=== PATIENT | male | born 1945 | race Two or more races ===

== ENCOUNTER 2020-02-21 13:44 | Outpatient (AMBR) | payer MEDICARE, MEDICAID, SELFPAY ==
--- NOTE | 2020-02-21 14:02 | PT.OIERPT ---
PT OP Initial Eval Patient Information Visit Reasons: low back pain Medical Diagnosis: M51.26 M43.16 G89.29 Start of Care: 02/21/20 Date of Onset: 8 weeks ago Initial Assessment Subjective Pt is 74 yr old japanese speaking male who c/o long Hx of LBP that started with falling out of a tree 6 yrs ago that has worsened over the past 2 months. Increased pain with walking, bending, lifting and twisting. Pain level is low now in sitting and he sits at home most of the day to watch television. PLOF: prior to falling out of a tree he had full function with ADL's and work duties and was able to return to work. PMH: HTN, asthma, OA B knees, L knee sx 02/03/12 Imaging: with Objective Trunk AROM B SB 50% with pain Extension: 10% with pain along beltline Flexion: 14 from floor B rotation: 40% with pain B SLR ROM: 30 deg with posterior neural tension LE strength: B hamstrings: 3+/5 Quads 3+/5 Hip abd/add 5-/5 TTP: B PSIS, L4-5 and L5-S1 paraspinals on R SLR: positive B Assessment Pt presents with trunk extension sensitivity and very limited ROM with pain consistent with X-rays that reveal spondylolisthesis of L5 on S1. Pt has poor standing tolerance and laying supine is also painful. The pt is not likely to benefit from skilled therapy at this time and has poor rehab potential due to severity of other lumbar issues such as DDD, spurring and significant spinal stenosis. PT recommends pain management referral. He was taught HEP and given materials. Short Term and Administrative Processor Goals Eval and d/C Treatment Plan Eval and D/C Follow up with provider Certification Dates: 02/21/20 to 03/22/20 Office Procedures PT Procedures PT Date of Service: 02/21/20 OP PT Eval Mod Complex 30 minutes: Yes
== END 2020-03-12 23:59 | disposition home or self-care (01) ==
PROVIDERS: PCP Nurse Practitioner Family; Referring Provider Nurse Practitioner Family; Visit Provider Nurse Practitioner Family
DX: M51.26 Other intervertebral disc displacement, lumbar region (principal); M43.16 Spondylolisthesis, lumbar region; G89.29 Other chronic pain; I10 Essential (primary) hypertension
CPT/HCPCS: 97162

== ENCOUNTER → 2024-10-27 | Outpatient (CLI) | payer OTHER, SELFPAY | END | disposition home or self-care (01) | PROVIDERS: PCP Family Medicine; Referring Provider Family Medicine; Visit Provider Student in an Organized Health Care Education/Training Program | DX: I10 Essential (primary) hypertension (principal); L97.822 Non-pressure chronic ulcer of other part of left lower leg with fat layer exposed; J45.909 Unspecified asthma, uncomplicated; I73.9 Peripheral vascular disease, unspecified; I82.409 Acute embolism and thrombosis of unspecified deep veins of unspecified lower extremity; M19.90 Unspecified osteoarthritis, unspecified site; E78.5 Hyperlipidemia, unspecified | CPT/HCPCS: 11042; 99213; A9270; G0463 ==

== ENCOUNTER → 2024-11-03 | Outpatient (CLI) | payer OTHER, SELFPAY | END | disposition home or self-care (01) | LOC: SWHD 13:45 | PROVIDERS: PCP Family Medicine; Referring Provider Family Medicine; Visit Provider Student in an Organized Health Care Education/Training Program | DX: I87.332 Chronic venous hypertension (idiopathic) with ulcer and inflammation of left lower extremity (principal); L97.822 Non-pressure chronic ulcer of other part of left lower leg with fat layer exposed; I10 Essential (primary) hypertension; J45.909 Unspecified asthma, uncomplicated; I73.9 Peripheral vascular disease, unspecified; I82.409 Acute embolism and thrombosis of unspecified deep veins of unspecified lower extremity; M19.90 Unspecified osteoarthritis, unspecified site; E78.5 Hyperlipidemia, unspecified | CPT/HCPCS: 17250; A9270 ==

== ENCOUNTER → 2024-11-11 | Outpatient (CLI) | payer OTHER, SELFPAY | END | disposition home or self-care (01) | LOC: SWHD 12:58 | PROVIDERS: PCP Family Medicine; Referring Provider Family Medicine; Visit Provider Student in an Organized Health Care Education/Training Program | DX: I87.332 Chronic venous hypertension (idiopathic) with ulcer and inflammation of left lower extremity (principal); L97.822 Non-pressure chronic ulcer of other part of left lower leg with fat layer exposed; I10 Essential (primary) hypertension; J45.909 Unspecified asthma, uncomplicated; I73.9 Peripheral vascular disease, unspecified; I82.409 Acute embolism and thrombosis of unspecified deep veins of unspecified lower extremity; M19.90 Unspecified osteoarthritis, unspecified site; E78.5 Hyperlipidemia, unspecified | CPT/HCPCS: 97597; A9270 ==

== ENCOUNTER 2024-11-15 15:46 | Emergency (ER) | payer OTHER, SELFPAY ==
[2024-11-15 15:47] VITALS: BMI 32.9
[2024-11-15 16:10] VITALS: BP 156/94; PULSE 66; RESP 20; TEMP 36.8; O2SAT 96
--- NOTE | 2024-11-15 16:42 | EKG_ITS ---
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: : 1945 Requested By: Jacoby Terry Order Number: [id number] Reading MD: Jacoby Terry Measurements Intervals [place] Rate: 65 P: AK: QRS: 64 QRSD: 90 T: 234 QT: 415 QTc: 433 Interpretive Statements ATRIAL FIBRILLATION POSSIBLE RIGHT VENTRICULAR CONDUCTION DELAY [RSR (QR) IN V1/V2] SEPTAL MYOCARDIAL INFARCTION , PROBABLY OLD [40+ ms Q WAVE IN V1/V2] MODERATE T-WAVE ABNORMALITY, CONSIDER LATERAL ISCHEMIA [-0.1+ mV T-WAVE IN I/aVL/V5/V6] MODERATE T-WAVE ABNORMALITY, CONSIDER INFERIOR ISCHEMIA [-0.1+ mV T-WAVE IN II/aVF] Compared to ECG 12/18/2022 08:38:01 Myocardial infarct finding now present Incomplete right bundle-branch block no longer present T-wave abnormality still present Possible ischemia still present /store/S0/[id number]/ecg/[id number].pdf
--- NOTE | 2024-11-15 16:42 | XR_ITS ---
Examination: CTA chest with intravenous contrast 2-D reconstructions 3-D reconstructions, vascular Date and time of exam: November 15, 2024 at 8:40 PM INDICATIONS: Difficulty breathing chest pain beginning 6 months ago CTDI: vol (mGy) 2184 DLP: (mGycm) 547 Technique: Multiple axial sections of the thorax have been obtained. 3 mm slice thickness, from below the hemidiaphragms to above the apices of the lungs. Mediastinal and lung density settings have been obtained. 2-D sagittal and coronal reconstructions. 3-D angiographic renderings, 3-D volume renderings, 3D post processing, vascular maximum intensity projections obtained. Contrast administered is 100 cc Isovue-370. Low dose protocols were performed. One or more of the following dose reduction techniques were used; automated exposure control, adjustment of the mA and/or KV according to patient size, use of iterative reconstruction technique. Findings: No thoracic aortic aneurysmal dilatation Pulmonary artery segments are not enlarged No pulmonary artery filling defects Moderate enlargement left atrium mild to moderate enlargement left ventricle Bronchiectasis in both lower lung zones with mild pneumonia left base Small gallstones IMPRESSION: Negative for pulmonary artery emboli Bronchiectasis in both lower lung zones Mild pneumonia left base Cholelithiasis
--- NOTE | 2024-11-15 16:44 | EDRME_ITS ---
Rapid Medical Screening Exam RME Arrival date/time: 11/15/24 15:46 79-year-old male with a history of asthma and DVTs reports with complaints of 6- week history of shortness of breath that worsened over the last few days Chief Complaint: Shortness of Breath/Dyspnea Time Seen by Provider: 11/15/24 16:28 Vital signs: Vital Signs Temperature 98.2 F 11/15/24 16:10 Pulse Rate 66 11/15/24 16:10 Respiratory Rate 20 11/15/24 16:10 Blood Pressure 156/94 H 11/15/24 16:10 Pulse Oximetry (%) 96 11/15/24 16:10 Oxygen Delivery Method Room Air 11/15/24 16:10
[2024-11-15 17:41] LABS: Basophils # (Auto) 0.1 Thou/mm3 (0.0-0.2); Basophils % (Auto) 1 % (0-2.5); Eosinophils # (Auto) 0.1 Thou/mm3 (0.0-0.5); Eosinophils % (Auto) 1 % (0-10); Hematocrit 41.8 % (41.0-53.0); Hemoglobin 13.6 g/dL (13.5-16.0); Immature Granulocytes % (Auto) 1 % (0-0); Immature Granulocytes Auto 0.06 Thou/mm3 (0.00-0.00); Lymphocytes # (Auto) 2.2 Thou/mm3 (1.0-4.8); Lymphocytes % (Auto) 23 % (10-50); Mean Corpuscular HGB Conc 32.5 g/dl (31.0-37.0); Mean Corpuscular Hemoglobin 29.6 pg (25.0-35.0); Mean Corpuscular Volume 91 fL (80-100); Monocytes # (Auto) 0.8 Thou/mm3 (0.0-0.8); Monocytes % (Auto) 9 % (0-12); Neutrophils # (Auto) 6.3 Thou/mm3 (1.8-7.7); Neutrophils % (Auto) 66 % (37-80); Nucleated Red Blood Cell % 0 /100 WBC (0); Platelet Count 312 Thou/mm3 (140-440); RDW Standard Deviation 51.2 fL (35.1-43.9); White Blood Count 9.6 Thou/mm3 (3.8-10.6)
[2024-11-15 17:54] LABS: Respiratory Syncytial Virus Ag Negative (Negative)
[2024-11-15 17:57] LABS: Alanine Aminotransferase 20 U/L (10-49); Albumin, Serum 4.2 gm/dL (3.4-4.8); Albumin/Globulin Ratio 1.4 (1.2-2.2); Alkaline Phosphatase 90 U/L (46-116); Anion Gap 6 (7-16); Aspartate Amino Transferase 24 U/L (0-34); BUN/Creatinine Ratio 14 Ratio (12-20); Bilirubin,Total 0.8 mg/dL (0.3-1.2); Blood Urea Nitrogen 15 mg/dL (9-23); Carbon Dioxide 32.6 mMol/L (20.0-31.0); Chloride 101 mMol/L (98-107); Creatinine (Component) 1.1 mg/dL (0.6-1.3); Estimated Creatinine Clearance 56.1 mL/min (>60); Globulin 3.1 gm/dL (2.3-3.5); Glucose 98 mg/dL (74-106); Osmolality,Calculated 280 (275-295); Potassium 4.2 mMol/L (3.4-5.1); Sodium 140 mMol/L (136-145); Total Protein 7.3 gm/dL (5.7-8.2); Troponin I < 0.020 ng/mL (0.0-0.045); eGFR > 60 See Note
[2024-11-15 18:08] LABS: B-Type Natriuretic Peptide 598 pg/mL (0-100)
--- NOTE | 2024-11-15 20:35 | PD.EDSOB ---
ED SOB =RME/HPI General Chief Complaint: Shortness of Breath/Dyspnea Stated Complaint: SOB AND DIFF. BREATHING Time Seen by Provider: 11/15/24 16:28 Arrival date/time: 11/15/24 15:46 Limitations: no limitations RME / HPI RME / HPI Narrative: 11/15/24 15:46 79-year-old male with a history of asthma and DVTs reports with complaints of 6-week history of shortness of breath that worsened over the last few days Patient is a 79-year-old Yi-speaking male with past medical history of asthma, hypertension, hyperlipidemia, DVTs, peripheral artery disease, and chronic venous stasis ulcers presents to the ED for a chief complaint of shortness of breath. Patient reports about a week of symptoms including congestion, cough, and fatigue. He was diagnosed about 1 week ago by PCP with flu, and was prescribed at that time prednisone 10 mg qday for 7 days which he completed and montelukast 10 mg qday. He was also prescribed Tamiflu. His symptoms were not improving therefore he came to the ED. Patient denies any known allergen exposures at home including animals, pets, or significant dust or dirt. He denies any history of COPD or smoking. Context: recent illness Severity: moderate Consistency/Duration: constant Known history of: asthma Related Data Home Medications ?Medication ?Instructions ?Recorded ?Confirmed atorvastatin 10 mg tablet 10 mg PO QDAY 04/24/20 11/03/20 furosemide 40 mg tablet (Lasix) 80 mg PO BID 04/24/20 11/03/20 lisinopril 20 mg tablet 20 mg PO QDAY 11/03/20 11/03/20 rivaroxaban 20 mg tablet (Xarelto) 20 mg PO QDAY 11/03/20 11/03/20 Previous Rx's ?Medication ?Instructions ?Recorded meclizine 12.5 mg tablet 12.5 mg PO TID PRN vertigo #30 tabs 11/03/20 ondansetron HCl 4 mg tablet 4 mg PO QID PRN nausea and 11/03/20 (Zofran) vomiting #14 tabs hydrocodone 5 mg-acetaminophen 325 1 tab PO Q6H PRN pain #14 tabs 02/23/21 mg tablet albuterol sulfate 2.5 mg/3 mL 2.5 mg (3 mL) inhalation Q4H PRN 12/18/22 (0.083 %) solution for nebulization shortness of breath or wheezing #90 mL prednisone 50 mg tablet 50 mg PO QDAY #5 tabs 12/18/22 albuterol sulfate 90 mcg/actuation 1 inh inhalation QID PRN shortness 04/05/23 aerosol inhaler of breath or wheezing #8.5 grams azithromycin 250 mg tablet See Rx Instructions PO .COMPLEX #6 04/05/23 (Zithromax Z-Gee) tabs prednisone 50 mg tablet 50 mg PO QDAY #5 tabs 04/05/23 albuterol sulfate 90 mcg/actuation 2 puff inhalation Q6H PRN 09/06/23 aerosol inhaler (Ventolin HFA) bronchospasm #6.7 grams nirmatrelvir 150 mg-ritonavir 100 See Rx Instructions PO .COMPLEX 09/06/23 mg tablets in a dose pack #20 tabs (Paxlovid) promethazine-DM 6.25 mg-15 mg/5 mL 5 ml PO Q6H #240 mL 09/06/23 oral syrup albuterol sulfate 90 mcg/actuation 2 inh inhalation Q4H PRN shortness 11/16/24 breath activated powder inhaler of breath or wheezing #1 ea azithromycin 250 mg tablet See Rx Instructions PO .COMPLEX #6 11/16/24 tabs Allergies Allergy/AdvReac Type Severity Reaction Status Date / Time No Known Allergies Allergy Verified 11/15/24 15:52 Review of Systems Review of Systems Systems Reviewed: All systems reviewed, normal except as documented Past Medical History Past Medical History Comments PMH COMMENT: Past Medical History: Asthma, hypertension, hyperlipidemia, DVTs, peripheral artery disease, and chronic venous stasis ulcers Family History: None Surgical History: Joint replacement Social History: Denies history of smoking, denies current alcohol use, denies recreational drug use Current Medications: Patient does not recall all medications but reports that prednisone, montelukast, and oseltamivir were prescribed by PCP 1 week ago Allergies: No known drug allergies ED Exam Narrative Physical exam: Physical Exam General: Awake and in no acute distress. Conversational and non-toxic appearing. HEENT: Normocephalic, atraumatic, mucous membranes moist. Heart: Regular rate and rhythm, no murmurs. Lungs: Upper respiratory transmitted congestion. Clear to auscultation with no wheezing or crackles. Abdomen: Soft, nondistended, nontender, positive bowel sounds. ?No guarding or rebound tenderness. Neurologic: Alert and oriented x3, no gross neurological deficit, and patient able to move all 4 extremities. Extremities: No edema. Skin: No rash or ecchymoses. General Limitations: Present no limitations General appearance: Present alert and in no apparent distress Head Head exam: Present atraumatic Eye Eye exam: Present normal appearance, PERRL and EOMI ENT ENT exam: Present normal exam, normal oropharynx and mucous membranes moist Neck Neck exam: Present normal inspection, full ROM and trachea midline Chest Chest inspection: Present normal inspection and symmetric chest wall rise Respiratory Respiratory exam: Present normal lung sounds bilaterally Cardiovascular Cardiovascular exam: Present regular rate, normal rhythm and normal heart sounds Abdominal Exam Abdominal exam: Present soft and normal bowel sounds Extremities Exam Extremities exam: Present normal inspection and full ROM Back Exam Back exam: Present normal inspection and full ROM Neurological Exam Neurological exam: Present alert, oriented X3 and CN II-XII intact Psychiatric Psychiatric exam: Present normal affect and normal mood Skin Skin exam: Present warm, dry, intact and normal color Course Course Course Narrative: 2038: Patient is in CT. 0144: CTA results finally back showing bronchitis with bronchiolitis in the right lower lobe. Negative for PE. Patient is stable for discharge, will prescribe 5-day course of azithromycin and albuterol refill. Quality Measures none Orders Category Date Time Status Bedside COVID-19 Antigen Test NOW Care 11/15/24 16:[address] Screening NOW Care 11/15/24 16:42 Completed EKG (ED ONLY) *Do not use* NOW Care 11/15/24 16:[address] angio chest Stat Exams 11/15/24 16:42 Taken EKG (ED Only) Stat Exams 11/15/24 16:42 Draft BNP [B-Type Natriuretic Peptide] Stat Lab 11/15/24 17:19 Completed CBC Stat Lab 11/15/24 17:19 Completed CMP [Comprehensive Metabolic Panel] Stat Lab 11/15/24 17:19 Completed RSV [Respiratory Syncytial Virus Ag] Stat Lab 11/15/24 17:05 Completed Troponin I Stat Lab 11/15/24 17:19 Completed MethylPREDNISolone.* [SoluMEDROL Inj] Med 11/15/24 20:42 Discontinued 125 mg IVP X1 ONE Vital Signs Vital signs: Vital Signs Temperature 98.2 F 11/15/24 16:10 Pulse Rate 66 11/15/24 16:10 Respiratory Rate 20 11/15/24 16:10 Blood Pressure 156/94 H 11/15/24 16:10 Pulse Oximetry (%) 96 11/15/24 16:10 Oxygen Delivery Method Room Air 11/15/24 16:10 Pulse ox is 96% on room air, which is normal according to my interpretation. Shortness of Breath / Dyspnea Patient data External records reviewed:: [facility] previous records (Per chart review, patient was seen here on 11/08/23 for DVT.) Clinical information provided by:: patient Social determinants that could affect healthcare access:: none Patient has the following chronic illnesses:: asthma How is presenting disease/condition affected by chronic disease/condition?: uneffected by Evaluation data The following diagnostics were reviewed and interpreted by me:: lab results, radiology exam(s) and EKG tracing(s) Lab and/or radiology exams considered but not ordered:: None Interpretation Summary: EKG interpretation: afib, 1638, 65, nonspec st in v5 and v6 with t wave inv, no elev Medications / Prescriptions Medications or Prescriptions considered but not ordered:: IV antibiotic Medication administrations:: Medication Administration History Discontinued Medications Methylprednisolone Sodium Succinate (Methylprednisolone Sod Succ 62.5 Mg/Ml 2ml Vial) 125 mg IVP X1 ONE Stop: 11/15/24 20:43 Last Admin: 11/15/24 20:49 Dose: 125 mg Documented By: EE Steroid Consultations Consultation(s) initiated? (list below): No Diagnosis Shortness of Breath Differential Diagnosis: asthma with exacerbation and other (bronchitis and influenza) Most likely diagnosis given after review of the tests above:: Bronchitis, influenza, asthma exacerbation Admission Indicated Admission indicated?: not indicated Admission Request Was there a request for admission?: No Disposition Plan Disposition Plan: Discharge Discharge Attestation Discharge Attestation: The patient and all family members were given an opportunity to ask questions and understood the discharge instructions. Discharge instructions specifically effects, indications for sooner follow up or return to the emergency department, and the expected course of current diagnosis. Patient condition: Stable Discharge Plan Plan Patient Disposition: HOME (Self Care) Patient condition on transfer: Stable Prescriptions/Referrals Prescriptions/Med Rec: New azithromycin 250 mg tablet See Rx Instructions .ROUTE .COMPLEX Qty: 6 0RF Rx Instructions: For 250 mg dose pack: take 500 mg today (day 1), then 250 mg for 4 days (days 2-5) albuterol sulfate 90 mcg/actuation aerosol powdr breath activated 2 inh inhalation Q4H PRN (Reason: shortness of breath or wheezing) Qty: 1 0RF No Action furosemide [Lasix] 40 mg Tablet 80 mg PO BID atorvastatin 10 mg Tablet 10 mg PO QDAY Xarelto 20 mg Tablet 20 mg PO QDAY lisinopril 20 mg Tablet 20 mg PO QDAY ondansetron HCl [Zofran] 4 mg tablet 4 mg PO QID PRN (Reason: nausea and vomiting) Qty: 14 0RF meclizine 12.5 mg tablet 12.5 mg PO TID PRN (Reason: vertigo) Qty: 30 0RF hydrocodone-acetaminophen 5-325 mg tablet 1 tab PO Q6H MDD 4 PRN (Reason: pain) Qty: 14 0RF azithromycin [Zithromax Z-Gee] 250 mg tablet See Rx Instructions .ROUTE .COMPLEX Qty: 6 0RF Rx Instructions: For 250 mg dose pack: take 500 mg today (day 1), then 250 mg for 4 days (days 2-5) prednisone 50 mg tablet 50 mg PO QDAY Qty: 5 0RF albuterol sulfate 90 mcg/actuation HFA aerosol inhaler 1 inh inhalation QID PRN (Reason: shortness of breath or wheezing) Qty: 8.5 0RF prednisone 50 mg tablet 50 mg PO QDAY Qty: 5 0RF Rx Instructions: Start taking the medication tomorrow albuterol sulfate 2.5 mg /3 mL (0.083 %) solution for nebulization 2.5 mg inhalation Q4H PRN (Reason: shortness of breath or wheezing) Qty: 90 0RF Paxlovid 150-100 mg tablets,dose pack See Rx Instructions .ROUTE .COMPLEX Qty: 20 0RF Rx Instructions: take ONE 150 mg tablet of nirmatrelvir with ONE 100 mg tablet of ritonavir twice daily for 5 days promethazine-DM 6.25-15 mg/5 mL syrup 5 ml PO Q6H Qty: 240 0RF albuterol sulfate [Ventolin HFA] 90 mcg/actuation HFA aerosol inhaler 2 puff inhalation Q6H PRN (Reason: bronchospasm) Qty: 6.7 0RF Referrals: Declan Carmona MD [Primary Care Provider] - In 1 week Problem List Clinical Impression: Asthma with exacerbation, Bronchitis Patient/Caregiver Discharge Instructions Education Materials: Acute Bronchitis, Asthma in Older Adults, ED Inhaler Use, Asthma Additional Instructions: Today you have been diagnosed with influenza and bronchitis Please take the following antibiotic, azithromycin, for the next 5 days: Take 2 pills on the first day. Take 1 pill on day 2 to 5. You have been prescribed an albuterol inhaler refill, please ask pharmacy for help with how to use it Hoy le merchant diagnosticado gripe y bronquitis. Marinette el siguiente antibi?elizabeth, azitromicina, malik los pr?ximos 5 d?as: Marinette 2 pastillas el primer d?a. Marinette 1 pastilla entre el d?a 2 y el 5. Le merchant recetado un inhalador de albuterol de repuesto. Solicite ayuda en la farmacia sobre c?mo usarlo. Print Language: Yi Stand Alone Forms: Dilma Award Info., Patient Portal Info Letter
[2024-11-15] MEDS: MethylPREDNISolone SOD SUCC 62.5 MG/ML 2ML VIAL 125 MG IVP (20:49)
--- NOTE | 2024-11-16 01:44 | PRELIM_ITS ---
CT angiogram of the chest with intravenous contrast (axial sections with sagittal and coronal reformats, 3D/MIP reconstructed images) November 15, 2024 at 2037 hours Clinical History: Dyspnea, history of DVT. Reference is made to the prior report dated February 23, 2021. Findings: There is no filling defect within the pulmonary artery divisions to suggest pulmonary thromboembolism. The mediastinum demonstrates no evidence of mass or lymphadenopathy. The thoracic aorta demonstrates atheromatous calcification without evidence of aneurysm. There is mild cardiomegaly. There is no p ericardial effusion. There are streaky atelectasis in the lingula and left lower lobe. Right basilar atelectasis is seen. Mild peribronchial wall thickening in the bilateral lower lobes with linear branching and micronodular opacities in the right lower lobe. No evidence of pleural effusion or pneumothorax. Mild degenerative changes are identified in the spine. Dependent hyperdensity is identified within the gallbladder, which may represent sludge versus calculus. There is a 2.2 cm cyst in the left kidney. The other visualized upper abdominal viscera are unremarkable. Impression: No evidence of pulmonary thromboembolism. Bronchitis with bronchiolitis in the right lower lobe Other findings as described above. Report Electronically Signed By: Navarro Roman 11/16/2024 1:44:23 AM [EST]
== END 2024-11-16 02:34 | disposition home or self-care (01) ==
PROVIDERS: Physician Assistant; Emergency Provider Emergency Medicine; PCP Family Medicine
DX: J45.901 Unspecified asthma with (acute) exacerbation (principal); J20.9 Acute bronchitis, unspecified; I10 Essential (primary) hypertension; E78.5 Hyperlipidemia, unspecified; Z86.718 Personal history of other venous thrombosis and embolism
CPT/HCPCS: 36415; 71275; 80053; 83880; 84484; 85025; 87400; 87502; 87634; 87811; 93005; 96374; 99285; A4649; J2919; Q9967

== ENCOUNTER → 2024-11-17 | Outpatient (CLI) | payer OTHER, MEDICAID, SELFPAY | END | disposition home or self-care (01) | PROVIDERS: PCP Family Medicine; Referring Provider Family Medicine; Visit Provider Surgery | DX: I87.332 Chronic venous hypertension (idiopathic) with ulcer and inflammation of left lower extremity (principal); L97.822 Non-pressure chronic ulcer of other part of left lower leg with fat layer exposed; I10 Essential (primary) hypertension; J45.909 Unspecified asthma, uncomplicated; I73.9 Peripheral vascular disease, unspecified; I82.409 Acute embolism and thrombosis of unspecified deep veins of unspecified lower extremity; M19.90 Unspecified osteoarthritis, unspecified site; E78.5 Hyperlipidemia, unspecified | CPT/HCPCS: 29580; A9270 ==

== ENCOUNTER → 2024-11-24 | Outpatient (CLI) | payer OTHER, MEDICAID, SELFPAY | END | disposition home or self-care (01) | PROVIDERS: PCP Family Medicine; Referring Provider Family Medicine; Visit Provider Student in an Organized Health Care Education/Training Program | DX: I87.332 Chronic venous hypertension (idiopathic) with ulcer and inflammation of left lower extremity (principal); L97.822 Non-pressure chronic ulcer of other part of left lower leg with fat layer exposed; I10 Essential (primary) hypertension; J45.909 Unspecified asthma, uncomplicated; I73.9 Peripheral vascular disease, unspecified; I82.409 Acute embolism and thrombosis of unspecified deep veins of unspecified lower extremity; M19.90 Unspecified osteoarthritis, unspecified site; E78.5 Hyperlipidemia, unspecified | CPT/HCPCS: 99212; G0463 ==

== ENCOUNTER → 2024-12-08 | Outpatient (CLI) | payer OTHER, MEDICAID, SELFPAY | END | disposition home or self-care (01) | PROVIDERS: PCP Family Medicine; Referring Provider Family Medicine; Visit Provider Student in an Organized Health Care Education/Training Program | DX: I87.332 Chronic venous hypertension (idiopathic) with ulcer and inflammation of left lower extremity (principal); L97.822 Non-pressure chronic ulcer of other part of left lower leg with fat layer exposed; I10 Essential (primary) hypertension; J45.909 Unspecified asthma, uncomplicated; I73.9 Peripheral vascular disease, unspecified; I82.409 Acute embolism and thrombosis of unspecified deep veins of unspecified lower extremity; M19.90 Unspecified osteoarthritis, unspecified site; E78.5 Hyperlipidemia, unspecified | CPT/HCPCS: 99213; G0463 ==

== ENCOUNTER 2025-01-20 08:49 | Emergency (ER) | payer OTHER, SELFPAY ==
[2025-01-20 09:24] VITALS: BP 135/90; PULSE 63; RESP 20; TEMP 36.6; O2SAT 95; BMI 34.7
--- NOTE | 2025-01-20 09:37 | EKG_ITS ---
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1945 Requested By: Nakita Millan ([facility]) Scout Order Number: [id number] Reading MD: Nakita Millan ([facility]) Scout Measurements Intervals [place] Rate: 44 P: ND: QRS: 1 QRSD: 96 T: 187 QT: 494 QTc: 423 Interpretive Statements ATRIAL FIBRILLATION WITH SLOW VENTRICULAR RESPONSE INCOMPLETE RIGHT BUNDLE BRANCH BLOCK [90+ ms QRS DURATION, TERMINAL R IN V1/V2, 40+ ms S IN I/aVL/V4/V5/V6] PROBABLE INFERIOR MYOCARDIAL INFARCTION , OF INDETERMINATE AGE [35 ms Q WAVE IN II/aVF] MODERATE T-WAVE ABNORMALITY, CONSIDER ANTEROLATERAL ISCHEMIA [-0.1+ mV T-WAVE IN V3-V6] Compared to ECG 11/15/2024 16:48:38 Incomplete right bundle-branch block now present Myocardial infarct finding still present T-wave abnormality still present Possible ischemia still present /store/S0/[id number]/ecg/[id number].pdf
--- NOTE | 2025-01-20 09:37 | PD.EDRME ---
Rapid Medical Screening Exam [facility] Arrival date/time: 01/20/25 08:49 79-year-old male presents to the emergency department with complaints of generalized abdominal pain, nausea without emesis for 4 days. Also complaining of wheezing history of asthma. I have greeted and performed a focused initial assessment of this patient. Initial appropriate labs ordered at this time. A comprehensive ED assessment and evaluation of the patient and analysis of all test and completion of medical decision making process will be conducted by additional ED provider. Chief Complaint: Abdominal Pain Time Seen by Provider: 01/20/25 09:04 Vital signs: Vital Signs Temperature 97.9 F 01/20/25 09:24 Pulse Rate 63 01/20/25 09:24 Respiratory Rate 20 01/20/25 09:24 Blood Pressure 135/90 H 01/20/25 09:24 Pulse Oximetry (%) 95 01/20/25 09:24 Oxygen Delivery Method Room Air 01/20/25 09:24
[2025-01-20] MEDS: ALBUTEROL/IPRATROPIUM (Duoneb) RT SOL 3 ML NEBU INH (10:00)
[2025-01-20 10:01] VITALS: PULSE 50; RESP 18; O2SAT 100
[2025-01-20 10:01] LABS: Basophils % (Auto) 1 % (0-2.5); Eosinophils # (Auto) 0.1 Thou/mm3 (0.0-0.5); Eosinophils % (Auto) 2 % (0-10); Hematocrit 38.8 % (41.0-53.0); Hemoglobin 12.3 g/dL (13.5-16.0); Immature Granulocytes % (Auto) 0 % (0-0); Immature Granulocytes Auto 0.02 Thou/mm3 (0.00-0.00); Lymphocytes # (Auto) 1.4 Thou/mm3 (1.0-4.8); Lymphocytes % (Auto) 22 % (10-50); Mean Corpuscular HGB Conc 31.7 g/dl (31.0-37.0); Mean Corpuscular Hemoglobin 29.4 pg (25.0-35.0); Mean Corpuscular Volume 93 fL (80-100); Monocytes # (Auto) 0.6 Thou/mm3 (0.0-0.8); Monocytes % (Auto) 10 % (0-12); Neutrophils # (Auto) 4.3 Thou/mm3 (1.8-7.7); Neutrophils % (Auto) 66 % (37-80); Nucleated Red Blood Cell % 0 /100 WBC (0); Platelet Count 242 Thou/mm3 (140-440); RDW Standard Deviation 48.6 fL (35.1-43.9); Red Blood Count 4.18 Miln/mm3 (4.50-5.90); White Blood Count 6.5 Thou/mm3 (3.8-10.6)
[2025-01-20 10:11] LABS: INR 1.3 (0.9-1.3); Prothrombin Time 13.5 Seconds (9.0-12.2)
[2025-01-20 10:19] LABS: Alanine Aminotransferase 10 U/L (10-49); Albumin/Globulin Ratio 1.6 (1.2-2.2); Alkaline Phosphatase 79 U/L (46-116); Anion Gap 5 (7-16); Aspartate Amino Transferase 19 U/L (0-34); BUN/Creatinine Ratio 13 Ratio (12-20); Bilirubin,Total 1.5 mg/dL (0.3-1.2); Blood Urea Nitrogen 12 mg/dL (9-23); Calcium 8.5 mg/dL (8.3-10.6); Calcium (Corrected) 8.5 mg/dL (8.5-10.1); Carbon Dioxide 30.6 mMol/L (20.0-31.0); Chloride 108 mMol/L (98-107); Creatinine (Component) 0.9 mg/dL (0.6-1.3); Estimated Creatinine Clearance 65.8 mL/min (>60); Globulin 2.5 gm/dL (2.3-3.5); Glucose 118 mg/dL (74-106); Lipase 32 U/L (12-53); Magnesium 2.2 mg/dL (1.6-2.6); Osmolality,Calculated 287 (275-295); Potassium 4.1 mMol/L (3.4-5.1); Sodium 144 mMol/L (136-145); Total Protein 6.5 gm/dL (5.7-8.2); Troponin I < 0.020 ng/mL (0.0-0.045); eGFR > 60 See Note
[2025-01-20 10:47] LABS: Collection Type, Urine Clean Catch; Squamous Epithelial Cell,Urine 0 /hpf (0-5)
[2025-01-20 10:55] LABS: Bilirubin,Urine Negative (Negative); Blood,Urine Negative (Negative); Clarity,Urine Clear (Clear/Hazy); Color,Urine Yellow (Lt Yel-Yel); Glucose, Urine Negative (Negative); Ketones,Urine Negative (Negative); Leukocyte Esterase,Urine Negative (Negative); Nitrite,Urine Negative (Negative); PH,Urine 7.5 (5.0-7.0); Protein,Urine Trace (Neg - Trace); RBC,Urine 4 /hpf (0-3); WBC,Urine < 1 /hpf (0-5)
--- NOTE | 2025-01-20 11:54 | EDNOTE_ITS ---
<Statement entered by Ilda Stallings MD - 01/22/25 07:17> As co-signing physician, I was present and available for consult prn. I concur with the plan and care as documented by the midlevel provider. ED Abdominal Pain RME/HPI General Chief Complaint: Abdominal Pain Stated complaint: ABD PAIN / NAUSEA X 4 DAYS; NO MEDS TAKEN Time seen by provider: 01/20/25 09:04 Arrival date/time: 01/20/25 08:49 RME / HPI RME / HPI narrative: 79-year-old male patient came in for evaluation regarding nausea. Patient has been having nausea for the last 4 days associated with abdominal discomfort. Patient denies any abdominal pain. Patient symptoms comes and goes. Patient also complained of shortness of breath with wheezing, has been ongoing for the last 4 days. Denies any fever. Denies any diarrhea. Denies any constipation. Denies any cough denies any other complaints no medication was taken prior to arrival. Related Data Home Medications ?Medication ?Instructions ?Recorded ?Confirmed atorvastatin 10 mg tablet 10 mg PO QDAY 04/24/2011/03 furosemide 40 mg tablet (Lasix) 80 mg PO BID 04/24/20 11/03/20 lisinopril 20 mg tablet 20 mg PO QDAY 11/03/2011/03 rivaroxaban 20 mg tablet (Xarelto) 20 mg PO QDAY 11/0311/03/20 Previous Rx's ?Medication ?Instructions ?Recorded meclizine 12.5 mg tablet 12.5 mg PO TID PRN vertigo # 30 tabs 11/03/20 ondansetron HCl 4 mg tablet 4 mg PO QID PRN nausea and 11/03/20 (Zofran) vomiting #14 tabs hydrocodone 5 mg-acetaminophen 325 1 tab PO Q6H PRN pa in #14 tabs 02/23/21 mg tablet albuterol sulfate 2.5 mg/3 mL 2.5 mg (3 mL) inhalation Q4H PRN 12/18/22 (0.083 %) solution for nebulization shortness of breat h or wheezing #90 mL prednisone 50 mg tablet 50 mg PO QDAY #5 tabs albuterol sulfate 90 mcg/actuation 1 inh inhalation QI D PRN shortness 04/05/23 aerosol inhaler of breath or wheezing #8.5 g rosaura azithromycin 250 mg tablet See Rx Instructions PO .COM PLEX #6 04/05/23 (Zithromax Z-Gee) tabs prednisone 50 mg tablet 50 mg PO QDAY #5 tabs albuterol sulfate 90 mcg/actuation 2 puff inhalation Q 6H PRN 09/06/23 aerosol inhaler (Ventolin HFA) bronchospasm #6.7 grams nirmatrelvir 150 mg-ritonavir 100 See Rx Instructions PO .COMPLEX 09/06/23 mg tablets in a dose pack #20 tabs (Paxlovid) promethazine-DM 6.25 mg-15 mg/5 mL 5 ml PO Q6H #240 mL 09/06/23 oral syrup albuterol sulfate 90 mcg/actuation 2 inh inhalation Q4 H PRN shortness 11/16/24 breath activated powder inhaler of breath or wheezing #1 ea azithromycin 250 mg tablet See Rx Instructions PO .COM PLEX #6 11/16/24 tabs albuterol sulfate 90 mcg/actuation 2 inh inhalation QI D PRN shortness 01/20/25 aerosol inhaler of breath or wheezing #8.5 g rosaura famotidine 40 mg tablet (Pepcid) 40 mg PO BID #20 tabs 01/20/25 ondansetron HCl 4 mg tablet 4 mg PO Q8H PRN nausea and 01/20/25 vomiting 5 days #20 tabs prednisone 50 mg tablet 50 mg PO QDAY #5 tabs Allergies Allergy/AdvReac Type Severity Reaction Status Date / Time No Known Allergies Allergy Verified 01/20/25 08:55 Review of Systems Review of Systems Narrative Review of Systems: Review of system reviewed and within normal limits except mentioned in HPI ED Exam Narrative Physical exam: VITAL SIGNS: Reviewed. GENERAL APPEARANCE: Alert and interactive, follows commands, no acute distress, HEAD AND FACE: Non-traumatic. ENT: PERRL, pink conjunctivitis, eyelid no trauma, Mucous membrane moist. NECK: Supple, nontender, no nuchal rigidity. CHEST: No tenderness, no crepitus, no paradoxical movement, no retractions. LUNGS: Clear, well ventilated, symmetric, no rales, no wheezing, no ronchi, no stridor, good breath sounds bilaterally. HEART: Regular rate, regular rhythm, no murmur, no gallops. ABDOMEN: Soft, positive bowel sounds, nondistended, no guarding, nontender, no rebound, no masses, RECTAL: Deferred. GENITAL: Deferred. NEUROLOGICAL: Gross motor function intact sensory function intact, Appropriate for age. MUSCULOSKELETAL: low back nontender, full range of motion. EXTREMITIES: Nontender, full range of motion. SKIN: Color pink, dry, no rash, no lacerations, no abrasions, no contusions. LYMPHATICS: Deferred. Course Quality Measures none Orders Category Date Time Status EKG (ED ONLY) *Do not use* NOW Care 01/20/25 09:37 Completed EKG (ED ONLY) *Do not use* NOW Care 01/20/25 12:33 Active NPO STAT Care 01/20/25 09:37 Active EKG (ED Only) Stat Exams 01/20/25 09:37 Draft EKG (ED Only) Stat Exams 01/20/25 12:33 Ordered XR chest 1V Stat Exams 01/20/25 13:30 Ordered CBC Stat Lab 01/20/25 09:53 Completed Comprehensive Metabolic Panel Stat Lab 01/20/25 09:53 Completed Lipase Stat Lab 01/20/25 09:53 Completed Magnesium Stat Lab 01/20/25 09:53 Completed Prothrombin Time with INR Stat Lab 01/20/25 09:53 Completed Troponin I Stat Lab 01/20/25 09:53 Completed Urinalysis Stat Lab 01/20/25 10:44 Completed Albuterol/Ipratr Rt Mikala [Duoneb Rt Mikala] Med 01/20/25 09:39 Discontinued 3 ml INH X1 ONE Ondansetron Odt [Zofran Odt] Med 01/20/25 11:53 Discontinued 4 mg PO X1 ONE mg Hyd/Al Hyd/Latia Susp [Maalox Susp] Med 01/20/25 11:53 Discontinued 30 ml PO X1 ONE Vital Signs Vital signs: Vital Signs Temperature 97.9 F 01/20/25 09:24 Pulse Rate 63 01/20/25 09:24 Respiratory Rate 20 01/20/25 09:24 Blood Pressure 135/90 H 01/20/25 09:24 Pulse Oximetry (%) 95 01/20/25 09:24 Oxygen Delivery Method Room Air 01/20/25 09:24 Abdominal Pain MDM MDM Narrative MDM Narrative:: 79-year-old male patient came in for evaluation regarding nausea. Patient has been having nausea for the last 4 days associated with abdominal discomfort. Patient denies any abdominal pain. Patient symptoms comes and goes. Patient also complained of shortness of breath with wheezing, has been ongoing for the last 4 days. Denies any fever. Denies any diarrhea. Denies any constipation. Denies any cough denies any other complaints no medication was taken prior to arrival. Patient's workup today UNREMARKABLE. Patient was given DuoNeb breathing treatment with significant improvement of symptoms, and was also given Zofran and Maalox with significant improvement of nausea. Imaging is not needed at this time, patient is not complaining of any abdominal pain. Patient's total bili slightly elevated 1.5. Patient was advised to closely follow-up with PCP for repeat CMP/LFTs. Patient EKG showed A-fib, ventricular rate of 44 bpm, no ST segment elevation depression noted. Patient was advised to follow-up with his rn assessment and mention about heart rate that are on the low or mid 40s. Currently patient is not having any symptoms. He is well anticoagulated, he is taking Xarelto, metoprolol, and Plavix. Patient was also advised to come to the emergency room for worsening abdominal discomfort, vomiting, fever or worsening of symptoms. Patient agrees with the plan Patient data External records reviewed:: None Clinical information provided by:: patient Social determinants that could affect healthcare access:: none Patient has the following chronic illnesses:: History of asthma hypertension How is presenting disease/condition affected by chronic disease/condition?: exacerbated by Evaluation data The following diagnostics were reviewed and interpreted by me:: lab results and EKG tracing(s) Lab and/or radiology exams considered but not ordered:: None Interpretation Summary: EKG showed chronic A-fib ventricular rate of 44 bpm, no ST segment elevation or depression. Laboratory workup unremarkable. Medications / Prescriptions Medications or Prescriptions considered but not ordered:: None Medication administrations:: Medication Administration History Discontinued Medications Al Hydrox/Mg Hydrox/Simethicone (Mg Hyd/Al Hyd/Latia (Maalox Reg) Susp 30 Ml Udc) 30 ml PO X1 ONE Stop: 01/20/25 11:54 Last Admin: 01/20/25 12:36 Dose: 30 ml Documented By: ER Albuterol/Ipratropium (Albuterol/Ipratropium (Duoneb) Rt Mikala 3 Ml Nebu) 3 ml INH X1 ONE Stop: 01/20/25 09:40 Last Admin: 01/20/25 10:00 Dose: 3 ml Documented By: OLY Ondansetron HCl (Ondansetron Odt 4 Mg Tabrap) 4 mg PO X1 ONE; Protocol Stop: 01/20/25 11:54 Last Admin: 01/20/25 12:36 Dose: 4 mg Documented By: ER Albuterol Zofran and Maalox Consultations Consultation(s) initiated? (list below): No Diagnosis Differential diagnosis abdominal pain: other (Asthma attack, nausea, uti) Most likely diagnosis given after review of the tests above:: Asthma attack, nausea Admission Indicated Admission indicated?: not indicated Admission Request Was there a request for admission?: No Disposition Plan Disposition Plan: Discharge Discharge Attestation Discharge Attestation: The patient and all family members were given an opportunity to ask questions and understood the discharge instructions. Discharge instructions specifically effects, indications for sooner follow up or return to the emergency department, and the expected course of current diagnosis. Patient condition: Stable Discharge Plan Plan Patient Disposition: HOME (Self Care) Disposition Comment: Stable Prescriptions/Referrals Prescriptions/Med Rec: New famotidine [Pepcid] 40 mg tablet 40 mg PO BID Qty: 20 0RF ondansetron HCl 4 mg tablet 4 mg PO Q8H PRN (Reason: nausea and vomiting) 5 Days Qty: 20 0RF prednisone 50 mg tablet 50 mg PO QDAY Qty: 5 0RF albuterol sulfate 90 mcg/actuation HFA aerosol inhaler 2 inh inhalation QID PRN (Reason: shortness of breath or wheezing) Qty: 8.5 0RF No Action furosemide [Lasix] 40 mg Tablet 80 mg PO BID atorvastatin 10 mg Tablet 10 mg PO QDAY Xarelto 20 mg Tablet 20 mg PO QDAY lisinopril 20 mg Tablet 20 mg PO QDAY ondansetron HCl [Zofran] 4 mg tablet 4 mg PO QID PRN (Reason: nausea and vomiting) Qty: 14 0RF meclizine 12.5 mg tablet 12.5 mg PO TID PRN (Reason: vertigo) Qty: 30 0RF hydrocodone-acetaminophen 5-325 mg tablet 1 tab PO Q6H MDD 4 PRN (Reason: pain) Qty: 14 0RF azithromycin [Zithromax Z-Gee] 250 mg tablet See Rx Instructions .ROUTE .COMPLEX Qty: 6 0RF Rx Instructions: For 250 mg dose pack: take 500 mg today (day 1), then 250 mg for 4 days (days 2-5) prednisone 50 mg tablet 50 mg PO QDAY Qty: 5 0RF albuterol sulfate 90 mcg/actuation HFA aerosol inhaler 1 inh inhalation QID PRN (Reason: shortness of breath or wheezing) Qty: 8.5 0RF prednisone 50 mg tablet 50 mg PO QDAY Qty: 5 0RF Rx Instructions: Start taking the medication tomorrow albuterol sulfate 2.5 mg /3 mL (0.083 %) solution for nebulization 2.5 mg inhalation Q4H PRN (Reason: shortness of breath or wheezing) Qty: 90 0RF Paxlovid 150-100 mg tablets,dose pack See Rx Instructions .ROUTE .COMPLEX Qty: 20 0RF Rx Instructions: take ONE 150 mg tablet of nirmatrelvir with ONE 100 mg tablet of ritonavir twice daily for 5 days promethazine-DM 6.25-15 mg/5 mL syrup 5 ml PO Q6H Qty: 240 0RF albuterol sulfate [Ventolin HFA] 90 mcg/actuation HFA aerosol inhaler 2 puff inhalation Q6H PRN (Reason: bronchospasm) Qty: 6.7 0RF azithromycin 250 mg tablet See Rx Instructions .ROUTE .COMPLEX Qty: 6 0RF Rx Instructions: For 250 mg dose pack: take 500 mg today (day 1), then 250 mg for 4 days (days 2-5) albuterol sulfate 90 mcg/actuation aerosol powdr breath activated 2 inh inhalation Q4H PRN (Reason: shortness of breath or wheezing) Qty: 1 0RF Referrals: Declan Carmona MD [Primary Care Provider] - In 1 week Problem List Clinical Impression: Asthma, Nausea, Chronic a-fib Patient/Caregiver Discharge Instructions Discharge Activity: activity as tolerated Education Materials: Asthma Additional Instructions: Thank you for the opportunity for serving you today. You are stable for discharged . You are advised to: Follow-up with your PCP in 1 to 2 days Follow-up with your rn assessment, we noticed today that your heart rate is on the low side Return to ED for worsening of symptoms Increase oral fluids Take medication as prescribed Print Language: Greenlandic Stand Alone Forms: Dilma Award Info., Patient Portal Info Letter PA/TELECOMMUNICATIONS SWITCH TECHNICIAN Supervising Physician MIRTA/ANTOINETTE Supervising Physician: Md Naomy
[2025-01-20 12:24] VITALS: BP 147/81; PULSE 42; RESP 20; TEMP 36.7; O2SAT 96
--- NOTE | 2025-01-20 12:33 | PC.NURSE ---
Laura DISTILLERY SUPERVISOR notified on HR 42bpm. Patient denies dizziness, SOB, or chest pain or discomfort at this time. New orders to be placed.
[2025-01-20] MEDS: MG HYD/AL HYD/SIME (Maalox Reg) SUSP 30 ML UDC PO (12:36)
[2025-01-20] MEDS: ONDANSETRON ODT 4 MG TABRAP PO (12:36)
[2025-01-20 13:13] VITALS: BP 159/84; PULSE 46; RESP 20; TEMP 36.6; O2SAT 98
--- NOTE | 2025-01-20 13:30 | XR_ITS ---
Examination: AP chest single view Technique one AP portable upright chest single view Exam date and time: January 20, 2025 1315 hrs. Comparison 06/16/2023 Indications: Shortness of breath beginning 2 days ago. Findings: Moderate enlargement left ventricle Mild elevation right hemidiaphragm No lobar pneumonia or pulmonary edema Significant osteopenia Impression: Moderate enlargement left ventricle No pneumonia or pulmonary edema
== END 2025-01-20 14:39 | disposition home or self-care (01) ==
PROVIDERS: Nurse Practitioner Primary Care; Emergency Provider Emergency Medicine; PCP Family Medicine
DX: J45.909 Unspecified asthma, uncomplicated (principal); R11.0 Nausea; I48.20 Chronic atrial fibrillation, unspecified; I10 Essential (primary) hypertension
CPT/HCPCS: 36415; 71045; 80053; 81001; 83690; 83735; 84484; 85025; 85610; 93005; 94640; 99283; A9270; Q0162

== ENCOUNTER 2025-04-05 07:14 | Emergency (ER) | payer OTHER, MEDICAID, SELFPAY ==
[2025-04-05 07:25] VITALS: BMI 33.7
[2025-04-05 07:26] VITALS: BP 157/80; PULSE 65; RESP 20; TEMP 36.8; O2SAT 97
--- NOTE | 2025-04-05 07:34 | XR_ITS ---
Examination: CT abdomen and pelvis without contrast. Coronal 3-D reconstructions. Sagittal 2-D reconstructions. Date and time of exam:April 05, 2025 0901 hours Comparison April 05, 2023 INDICATIONS: Epigastric pain and nausea today CTDI: vol (mGy): 9.3 DLP: (mGycm): 569 Technique: Axial images of the abdomen have been obtained, 3 mm slice thickness Intravenous contrast material has not been administered. Low dose protocols were performed. One or more of the following dose reduction techniques were used; automated exposure control, adjustment of the mA and/or KV according to patient size, use of iterative reconstruction technique. Findings: Mild enlargement left atrium left ventricle No visualized liver or splenic lesions Suspicious for tiny gallstones No pancreatic or adrenal mass No renal or ureteral calculi, no hydronephrosis Aorta normal size 20 mm fat-containing umbilical hernia Normal appendix No bowel obstruction Colonic diverticulosis No diverticulitis AP prostate dimension 3.6 cm No bladder mass or bladder calculi Small fat-containing umbilical hernias Grade 1 spondylolisthesis L5 on S1 Diffuse [id number] lumbar disc narrowing Advanced left hip osteoarthritis IMPRESSION: Recommend hepatobiliary sonography follow-up to exclude gallstones 20 mm fat-containing a buckle hernia Colonic diverticulosis, no diverticulitis Normal appendix
--- NOTE | 2025-04-05 07:34 | XR_ITS ---
Examination: PA lateral chest 2 views TECHNIQUE: Upright PA lateral chest 2 views Date and time: April 05, 2025 0754 hours INDICATIONS: Acute chest pain today FINDINGS: Pneumonia left base obscuring detail left cardiac contour Pneumonia also in the lingular segment Mild prominence of ventricle Prominent osteopenia IMPRESSION: Pneumonia left base and lingular segment left upper lobe
--- NOTE | 2025-04-05 07:34 | EKG_ITS ---
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: : 1945 Requested By: Daren Fitzgerald (ANTHONY) Order Number: [id number] Reading MD: Daren Fitzgerald (ORNAMENTAL IRON WORKER) Measurements Intervals [place] Rate: 61 P: DE: QRS: 45 QRSD: 94 T: 223 QT: 456 QTc: 461 Interpretive Statements ATRIAL FIBRILLATION INCOMPLETE RIGHT BUNDLE BRANCH BLOCK [90+ ms QRS DURATION, TERMINAL R IN V1/V2, 40+ ms S IN I/aVL/V4/V5/V6] ST DEVIATION AND MODERATE T-WAVE ABNORMALITY, CONSIDER ANTEROLATERAL ISCHEMIA [-0.1+ mV T-WAVE IN V3-V6] ST DEVIATION AND MODERATE T-WAVE ABNORMALITY, CONSIDER INFERIOR ISCHEMIA [-0.1+ mV T-WAVE IN II/aVF] Compared to ECG 01/20/2025 09:56:40 Myocardial infarct finding no longer present T-wave abnormality still present Possible ischemia still present /store/S0/[id number]/ecg/[id number].pdf
--- NOTE | 2025-04-05 07:35 | PD.EDRME ---
Rapid Medical Screening Exam RME Arrival date/time: 04/05/25 07:14 79-year-old male presents to the emergency department today for complaint of generalized abdominal pain Chief Complaint: Abdominal Pain Vital signs: Vital Signs Temperature 98.2 F 04/05/25 07:26 Pulse Rate 65 04/05/25 07:26 Respiratory Rate 20 04/05/25 07:26 Blood Pressure 157/80 H 04/05/25 07:26 Pulse Oximetry (%) 97 04/05/25 07:26 Oxygen Delivery Method Room Air 04/05/25 07:26
[2025-04-05 08:39] LABS: Basophils % (Auto) 0 % (0-2.5); Eosinophils # (Auto) 0.1 Thou/mm3 (0.0-0.5); Eosinophils % (Auto) 1 % (0-10); Hematocrit 40.1 % (41.0-53.0); Hemoglobin 13.1 g/dL (13.5-16.0); Immature Granulocytes % (Auto) 0 % (0-0); Immature Granulocytes Auto 0.01 Thou/mm3 (0.00-0.00); Lymphocytes # (Auto) 1.5 Thou/mm3 (1.0-4.8); Lymphocytes % (Auto) 24 % (10-50); Mean Corpuscular HGB Conc 32.7 g/dl (31.0-37.0); Mean Corpuscular Hemoglobin 29.4 pg (25.0-35.0); Mean Corpuscular Volume 90 fL (80-100); Monocytes # (Auto) 0.6 Thou/mm3 (0.0-0.8); Monocytes % (Auto) 9 % (0-12); Neutrophils # (Auto) 4.1 Thou/mm3 (1.8-7.7); Neutrophils % (Auto) 65 % (37-80); Nucleated Red Blood Cell % 0 /100 WBC (0); Platelet Count 224 Thou/mm3 (140-440); RDW Standard Deviation 49.8 fL (35.1-43.9); Red Blood Count 4.46 Miln/mm3 (4.50-5.90); White Blood Count 6.3 Thou/mm3 (3.8-10.6)
[2025-04-05 09:01] LABS: B-Type Natriuretic Peptide 548 pg/mL (0-100)
[2025-04-05 09:07] LABS: Alanine Aminotransferase 10 U/L (10-49); Albumin/Globulin Ratio 1.7 (1.2-2.2); Alkaline Phosphatase 87 U/L (46-116); Anion Gap 6 (7-16); Aspartate Amino Transferase 19 U/L (0-34); BUN/Creatinine Ratio 10 Ratio (12-20); Bilirubin,Total 1.5 mg/dL (0.3-1.2); Blood Urea Nitrogen 10 mg/dL (9-23); Calcium 8.9 mg/dL (8.3-10.6); Calcium (Corrected) 8.9 mg/dL (8.5-10.1); Carbon Dioxide 30.4 mMol/L (20.0-31.0); Chloride 105 mMol/L (98-107); Estimated Creatinine Clearance 60.4 mL/min (>60); Globulin 2.4 gm/dL (2.3-3.5); Glucose 109 mg/dL (74-106); Lipase 31 U/L (12-53); Osmolality,Calculated 281 (275-295); Potassium 3.8 mMol/L (3.4-5.1); Sodium 141 mMol/L (136-145); Total Protein 6.4 gm/dL (5.7-8.2); Troponin I < 0.020 ng/mL (0.0-0.045); eGFR > 60 See Note
--- NOTE | 2025-04-05 09:59 | XR_ITS ---
Examination: Abdomen sonogram, Limited Date and time of exam: April 05, 2025 1157 hours INDICATIONS: Abdominal pain beginning one year ago Technique: Real-time arnold scale transabdominal sonographic images of the upper abdomen obtained. Findings: Negative for gallstones Gallbladder wall 0.46 cm no edema No common bile duct stones Pancreas obscured by bowel gas Liver 13.5 cm fatty infiltration mildly lobular contour Normal hepatopedal portal venous flow Patent IVC IMPRESSION: Borderline thickening gallbladder wall 0.46 cm, clinical correlation advised, consider HIDA scan or MRCP follow-up to exclude cholecystitis as clinically warranted
[2025-04-05 11:16] LABS: Collection Type, Urine Clean Catch; Squamous Epithelial Cell,Urine 0 /hpf (0-5); WBC,Urine 0 /hpf (0-5)
[2025-04-05 11:27] LABS: Bacteria,Urine Rare; Bilirubin,Urine Negative (Negative); Blood,Urine Negative (Negative); Clarity,Urine Clear (Clear/Hazy); Color,Urine Yellow (Lt Yel-Yel); Glucose, Urine Negative (Negative); Ketones,Urine Negative (Negative); Leukocyte Esterase,Urine Negative (Negative); Nitrite,Urine Negative (Negative); Protein,Urine Trace (Neg - Trace); RBC,Urine 8 /hpf (0-3)
--- NOTE | 2025-04-05 11:28 | PD.EDABDPN ---
ED Abdominal Pain RME/HPI General Chief Complaint: Abdominal Pain Stated complaint: STOMACHACHE X 4 DAYS; UNABLE TO EAT OR SLEEP Time seen by provider: 04/05/25 11:05 Arrival date/time: 04/05/25 07:14 Limitations: no limitations RME / HPI RME / HPI narrative: 79-year-old male with a history of hypertension, asthma, atrial fibrillation, peripheral artery disease is here today with vague upper abdominal discomfort and chest discomfort. He denies any cough or shortness of breath although he does endorse having asthma. Denies any near syncopal episodes. Has no acute or worsening lower leg edema. Denies any near syncopal episodes. Has no nausea or vomiting. No bowel changes. Has no urinary complaints. Denies any fevers or chills. He has no other acute concerns. Related Data Home Medications ?Medication ?Instructions ?Recorded ?Confirmed atorvastatin 10 mg tablet 10 mg PO QDAY 04/24/20 11/03/20 furosemide 40 mg tablet (Lasix) 80 mg PO BID 04/24/20 11/03/20 lisinopril 20 mg tablet 20 mg PO QDAY 11/03/20 11/03/20 rivaroxaban 20 mg tablet (Xarelto) 20 mg PO QDAY 11/03/20 11/03/20 Previous Rx's ?Medication ?Instructions ?Recorded meclizine 12.5 mg tablet 12.5 mg PO TID PRN vertigo #30 tabs 11/03/20 ondansetron HCl 4 mg tablet 4 mg PO QID PRN nausea and 11/03/20 (Zofran) vomiting #14 tabs hydrocodone 5 mg-acetaminophen 325 1 tab PO Q6H PRN pain #14 tabs 02/23/21 mg tablet albuterol sulfate 2.5 mg/3 mL 2.5 mg (3 mL) inhalation Q4H PRN 12/18/22 (0.083 %) solution for nebulization shortness of breath or wheezing #90 mL prednisone 50 mg tablet 50 mg PO QDAY #5 tabs 12/18/22 albuterol sulfate 90 mcg/actuation 1 inh inhalation QID PRN shortness 04/05/23 aerosol inhaler of breath or wheezing #8.5 grams azithromycin 250 mg tablet See Rx Instructions PO .COMPLEX #6 04/05/23 (Zithromax Z-Gee) tabs prednisone 50 mg tablet 50 mg PO QDAY #5 tabs 04/05/23 albuterol sulfate 90 mcg/actuation 2 puff inhalation Q6H PRN 09/06/23 aerosol inhaler (Ventolin HFA) bronchospasm #6.7 grams nirmatrelvir 150 mg (10)-ritonavir See Rx Instructions PO .COMPLEX 09/06/23 100 mg (10) tablets in a dose pack #20 tabs (Paxlovid) promethazine-DM 6.25 mg-15 mg/5 mL 5 ml PO Q6H #240 mL 09/06/23 oral syrup albuterol sulfate 90 mcg/actuation 2 inh inhalation Q4H PRN shortness 11/16/24 breath activated powder inhaler of breath or wheezing #1 ea azithromycin 250 mg tablet See Rx Instructions PO .COMPLEX #6 11/16/24 tabs albuterol sulfate 90 mcg/actuation 2 inh inhalation QID PRN shortness 01/20/25 aerosol inhaler of breath or wheezing #8.5 grams famotidine 40 mg tablet (Pepcid) 40 mg PO BID #20 tabs 01/20/25 prednisone 50 mg tablet 50 mg PO QDAY #5 tabs 01/20/25 Allergies Allergy/AdvReac Type Severity Reaction Status Date / Time No Known Allergies Allergy Verified 04/05/25 07:20 Review of Systems Review of Systems Systems Reviewed: All systems reviewed, normal except as documented ED Exam General Limitations: Present no limitations General appearance: Present alert and in no apparent distress Head Head exam: Present atraumatic Eye Eye exam: Present normal appearance, PERRL and EOMI ENT ENT exam: Present normal exam, normal oropharynx and mucous membranes moist Neck Neck exam: Present normal inspection, full ROM and trachea midline Chest Chest inspection: Present normal inspection and symmetric chest wall rise Respiratory Respiratory exam: Present wheezes and prolonged expiratory phase; Absent respiratory distress, stridor or accessory muscle use Cardiovascular Cardiovascular exam: Present regular rate, normal rhythm and normal heart sounds Abdominal Exam Abdominal exam: Present soft and normal bowel sounds; Absent distention, tenderness, guarding, rebound or rigidity Extremities Exam Extremities exam: Present normal inspection and full ROM Back Exam Back exam: Present normal inspection and full ROM Neurological Exam Neurological exam: Present alert, oriented X3 and CN II-XII intact Psychiatric Psychiatric exam: Present normal affect and normal mood Skin Skin exam: Present warm, dry, intact and normal color Course Quality Measures none Orders Category Date Time Status EKG (ED ONLY) *Do not use* NOW Care 04/05/25 07:[address] abdomen pelvis wo con Stat Exams 04/05/25 07:34 Completed EKG (ED Only) Stat Exams 04/05/25 07:34 Draft US gall bladder Stat Exams 04/05/25 09:59 Ordered XR chest 2V Stat Exams 04/05/25 07:34 Completed B-Type Natriuretic Peptide Stat Lab 04/05/25 08:25 Completed CBC Stat Lab 04/05/25 08:25 Completed Comprehensive Metabolic Panel Stat Lab 04/05/25 08:25 Completed Lipase Stat Lab 04/05/25 08:25 Completed Troponin I Stat Lab 04/05/25 08:25 Completed Urinalysis Stat Lab 04/05/25 11:11 Completed Albuterol/Ipratr Rt Mikala [Duoneb Rt Mikala] Med 04/05/25 11:27 Discontinued 3 ml INH X1 ONE Albuterol/Ipratr Rt Mikala [Duoneb Rt Mikala] Med 04/05/25 11:27 Discontinued 3 ml INH X1 ONE dexAMETHasone TAB [Decadron Tab] Med 04/05/25 11:27 Discontinued 6 mg PO X1 ONE Vital Signs Vital signs: Vital Signs Temperature 98.2 F 04/05/25 07:26 Pulse Rate 65 04/05/25 07:26 Respiratory Rate 20 04/05/25 07:26 Blood Pressure 157/80 H 04/05/25 07:26 Pulse Oximetry (%) 97 04/05/25 07:26 Oxygen Delivery Method Room Air 04/05/25 07:26 Abdominal Pain [facility] MDM Narrative [facility] Narrative:: 79-year-old male is here today with vague, mild, abdominal discomfort and chest discomfort. He has no nausea or vomiting. He has no right upper quadrant pain. He has no pain with meals. He has no flank pain or dysuria. Has no urinary frequency. His work appears essentially unremarkable with the exception of a mildly elevated bilirubin at 1.5 and few erythrocytes in his urine. He has no fevers or chills. His abdominal exam is completely benign. He has no point tenderness including deep palpation of the right upper quadrant. No masses were appreciated. His CT report indicates there is a nonincarcerated fat-containing hernia. We will refer him to outpatient surgery for consultation. He had significant wheezing that was improved with 2 doses of DuoNebs. He also received a dose of Decadron here. He states his inhaler is almost out and he has no refills. Will send a prescription for albuterol to his pharmacy. He agrees to follow-up with his primary clinical team this week. Return at anytime for any worsening changes including worsening pain or dysuria. Patient data External records reviewed:: [facility] previous records Clinical information provided by:: patient Social determinants that could affect healthcare access:: none Patient has the following chronic illnesses:: Hypertension, peripheral artery disease, atrial fibrillation, asthma How is presenting disease/condition affected by chronic disease/condition?: exacerbated by Evaluation data The following diagnostics were reviewed and interpreted by me:: lab results (CBC is unremarkable. Metabolic panel reveals a mildly elevated bilirubin, liver enzymes and lipase are all within normal limits. Troponin is negative. BNP is elevated at 548.) Lab and/or radiology exams considered but not ordered:: n/a Interpretation Summary: Elevated bilirubin at 1.5 otherwise unremarkable. Medications / Prescriptions Medications or Prescriptions considered but not ordered:: n/a Medication administrations:: Medication Administration History Discontinued Medications Albuterol/Ipratropium (Albuterol/Ipratropium (Duoneb) Rt Mikala 3 Ml Nebu) 3 ml INH X1 ONE Stop: 04/05/25 11:28 Last Admin: 04/05/25 12:04 Dose: 3 ml Documented By: FAINA Albuterol/Ipratropium (Albuterol/Ipratropium (Duoneb) Rt Mikala 3 Ml Nebu) 3 ml INH X1 ONE Stop: 04/05/25 11:28 Last Admin: 04/05/25 12:04 Dose: Not Given Documented By: FAINA Non-Admin Reason: Duplicate Medication on eMAR Dexamethasone (Dexamethasone 4 Mg Tablet) 6 mg PO X1 ONE; Protocol Stop: 04/05/25 11:28 Last Admin: 04/05/25 11:41 Dose: 6 mg Documented By: PORTILLO See above Consultations Consultation(s) initiated? (list below): No Diagnosis Differential diagnosis abdominal pain: abdominal pain, constipation, diverticulitis and gastroenteritis Most likely diagnosis given after review of the tests above:: Asthma, abdominal cramping Admission Indicated Admission indicated?: not indicated Admission Request Was there a request for admission?: No Disposition Plan Disposition Plan: Discharge Discharge Attestation Discharge Attestation: The patient and all family members were given an opportunity to ask questions and understood the discharge instructions. Discharge instructions specifically effects, indications for sooner follow up or return to the emergency department, and the expected course of current diagnosis. Patient condition: Stable Discharge Plan Plan Patient Disposition: HOME (Self Care) Patient condition on transfer: Stable Prescriptions/Referrals Prescriptions/Med Rec: No Action furosemide [Lasix] 40 mg Tablet 80 mg PO BID atorvastatin 10 mg Tablet 10 mg PO QDAY Xarelto 20 mg Tablet 20 mg PO QDAY lisinopril 20 mg Tablet 20 mg PO QDAY ondansetron HCl [Zofran] 4 mg tablet 4 mg PO QID PRN (Reason: nausea and vomiting) Qty: 14 0RF meclizine 12.5 mg tablet 12.5 mg PO TID PRN (Reason: vertigo) Qty: 30 0RF hydrocodone-acetaminophen 5-325 mg tablet 1 tab PO Q6H MDD 4 PRN (Reason: pain) Qty: 14 0RF azithromycin [Zithromax Z-Gee] 250 mg tablet See Rx Instructions .ROUTE .COMPLEX Qty: 6 0RF Rx Instructions: For 250 mg dose pack: take 500 mg today (day 1), then 250 mg for 4 days (days 2-5) prednisone 50 mg tablet 50 mg PO QDAY Qty: 5 0RF albuterol sulfate 90 mcg/actuation HFA aerosol inhaler 1 inh inhalation QID PRN (Reason: shortness of breath or wheezing) Qty: 8.5 0RF famotidine [Pepcid] 40 mg tablet 40 mg PO BID Qty: 20 0RF prednisone 50 mg tablet 50 mg PO QDAY Qty: 5 0RF albuterol sulfate 90 mcg/actuation HFA aerosol inhaler 2 inh inhalation QID PRN (Reason: shortness of breath or wheezing) Qty: 8.5 0RF prednisone 50 mg tablet 50 mg PO QDAY Qty: 5 0RF Rx Instructions: Start taking the medication tomorrow albuterol sulfate 2.5 mg /3 mL (0.083 %) solution for nebulization 2.5 mg inhalation Q4H PRN (Reason: shortness of breath or wheezing) Qty: 90 0RF Paxlovid 150-100 mg tablets,dose pack See Rx Instructions .ROUTE .COMPLEX Qty: 20 0RF Rx Instructions: take ONE 150 mg tablet of nirmatrelvir with ONE 100 mg tablet of ritonavir twice daily for 5 days promethazine-DM 6.25-15 mg/5 mL syrup 5 ml PO Q6H Qty: 240 0RF albuterol sulfate [Ventolin HFA] 90 mcg/actuation HFA aerosol inhaler 2 puff inhalation Q6H PRN (Reason: bronchospasm) Qty: 6.7 0RF azithromycin 250 mg tablet See Rx Instructions .ROUTE .COMPLEX Qty: 6 0RF Rx Instructions: For 250 mg dose pack: take 500 mg today (day 1), then 250 mg for 4 days (days 2-5) albuterol sulfate 90 mcg/actuation aerosol powdr breath activated 2 inh inhalation Q4H PRN (Reason: shortness of breath or wheezing) Qty: 1 0RF Referrals: Declan Carmona MD [Primary Care Provider] - In 1 week Problem List Clinical Impression: Hernia, Asthma Patient/Caregiver Discharge Instructions Education Materials: ED Hernia (Adult), Asthma Additional Instructions: -Refills of your inhaler have been provided. - We will refer you to general surgery for outpatient follow-up and consultation for your non-incarcerated, fat containing, hernia - Please follow-up with your clinic this week for recheck. - Please return to the emergency room at anytime for any worsening or emergent changes. Print Language: Czech Stand Alone Forms: Dilma Award Info., Patient Portal Info Letter
[2025-04-05] MEDS: dexAMETHasone 4 MG TABLET 6 MG PO (11:41)
[2025-04-05] MEDS: ALBUTEROL/IPRATROPIUM (Duoneb) RT SOL 3 ML NEBU INH (12:04)
[2025-04-05 12:05] VITALS: PULSE 53; RESP 18; O2SAT 97
[2025-04-05 12:30] VITALS: BP 154/88; PULSE 72; RESP 18; TEMP 36.7; O2SAT 97
== END 2025-04-05 12:35 | disposition home or self-care (01) ==
PROVIDERS: Nurse Practitioner Primary Care; Emergency Provider Family Medicine; PCP Family Medicine
DX: K42.9 Umbilical hernia without obstruction or gangrene (principal); J18.9 Pneumonia, unspecified organism; K57.30 Diverticulosis of large intestine without perforation or abscess without bleeding; I45.10 Unspecified right bundle-branch block; R94.31 Abnormal electrocardiogram [ECG] [EKG]; I48.91 Unspecified atrial fibrillation
CPT/HCPCS: 36415; 71046; 74176; 76705; 80053; 81001; 83690; 83880; 84484; 85025; 93005; 94640; 99284; A9270; J8540

== ENCOUNTER 2025-07-31 15:04 | Emergency (ER) | payer OTHER, MEDICAID, SELFPAY ==
[2025-07-31 15:30] VITALS: BP 128/86; PULSE 98; RESP 19; TEMP 37.7; O2SAT 98; BMI 31.0
--- NOTE | 2025-07-31 16:14 | EKG_ITS ---
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: : 1945 Requested By: Ilda Abernathy Order Number: [id number] Reading MD: Ilda Abernathy Measurements Intervals [place] Rate: 48 P: [place]: QRS: 57 QRSD: 95 T: 219 QT: 497 QTc: 445 Interpretive Statements ATRIAL FIBRILLATION WITH SLOW VENTRICULAR RESPONSE INCOMPLETE RIGHT BUNDLE BRANCH BLOCK [90+ ms QRS DURATION, TERMINAL R IN V1/V2, 40+ ms S IN I/aVL/V4/V5/V6] ST DEVIATION AND MODERATE T-WAVE ABNORMALITY, CONSIDER ANTEROLATERAL ISCHEMIA [-0.1+ mV T-WAVE IN V3-V6] ST DEVIATION AND MODERATE T-WAVE ABNORMALITY, CONSIDER INFERIOR ISCHEMIA [-0.1+ mV T-WAVE IN II/aVF] Compared to ECG 04/05/2025 07:41:37 No significant changes /store/S0/[id number]/ecg/[id number].pdf
--- NOTE | 2025-07-31 16:14 | XR_ITS ---
EXAMINATION: PA chest single view TECHNIQUE: Upright PA chest single view Date and time: July 31, 2025, 1705 hours, comparison April 05, 2025 INDICATIONS: Chest pain today. FINDINGS: Mild to moderate enlargement left ventricle Ectatic enlarged thoracic aorta. Mild vascular congestion. No lobar pneumonia or pulmonary edema. Prominent osteopenia IMPRESSION: Mild to moderate enlargement left ventricle Mild vascular congestion
--- NOTE | 2025-07-31 16:30 | PD.EDURI ---
Upper Respiratory Inf. RME/HPI General Chief Complaint: Flu Like Symptoms Stated Complaint: COUGH X4 DAYS Time Seen by Provider: 07/31/25 15:42 Arrival date/time: 07/31/25 15:04 RME / HPI RME / HPI Narrative: DR. STALLINGS MAIN ED EVALUATION: 80-year-old male with a history of arthritis and asthma presents to the Emergency Department for cough and congestion ongoing for 4 days. The patient denies fever, chills, or chest pain. Used to have inhalers but not anymore. No recent sick contacts or travel. Never smoker. Related Data Home Medications ?Medication ?Instructions ?Recorded ?Confirmed atorvastatin 10 mg tablet 10 mg PO QDAY 04/24/20 11/03/20 furosemide 40 mg tablet (Lasix) 80 mg PO BID 04/24/20 11/03/20 lisinopril 20 mg tablet 20 mg PO QDAY 11/03/20 11/03/20 rivaroxaban 20 mg tablet (Xarelto) 20 mg PO QDAY 11/03/20 11/03/20 Previous Rx's ?Medication ?Instructions ?Recorded meclizine 12.5 mg tablet 12.5 mg PO TID PRN vertigo #30 tabs 11/03/20 ondansetron HCl 4 mg tablet 4 mg PO QID PRN nausea and 11/03/20 (Zofran) vomiting #14 tabs hydrocodone 5 mg-acetaminophen 325 1 tab PO Q6H PRN pain #14 tabs 02/23/21 mg tablet albuterol sulfate 2.5 mg/3 mL 2.5 mg (3 mL) inhalation Q4H PRN 12/18/22 (0.083 %) solution for nebulization shortness of breath or wheezing #90 mL prednisone 50 mg tablet 50 mg PO QDAY #5 tabs 12/18/22 albuterol sulfate 90 mcg/actuation 1 inh inhalation QID PRN shortness 04/05/23 aerosol inhaler of breath or wheezing #8.5 grams azithromycin 250 mg tablet See Rx Instructions PO .COMPLEX #6 04/05/23 (Zithromax Z-Gee) tabs prednisone 50 mg tablet 50 mg PO QDAY #5 tabs 04/05/23 albuterol sulfate 90 mcg/actuation 2 puff inhalation Q6H PRN 09/06/23 aerosol inhaler (Ventolin HFA) bronchospasm #6.7 grams nirmatrelvir 150 mg (10)-ritonavir See Rx Instructions PO .COMPLEX 09/06/23 100 mg (10) tablets in a dose pack #20 tabs (Paxlovid) promethazine-DM 6.25 mg-15 mg/5 mL 5 ml PO Q6H #240 mL 09/06/23 oral syrup albuterol sulfate 90 mcg/actuation 2 inh inhalation Q4H PRN shortness 11/16/24 breath activated powder inhaler of breath or wheezing #1 ea azithromycin 250 mg tablet See Rx Instructions PO .COMPLEX #6 11/16/24 tabs albuterol sulfate 90 mcg/actuation 2 inh inhalation QID PRN shortness 01/20/25 aerosol inhaler of breath or wheezing #8.5 grams famotidine 40 mg tablet (Pepcid) 40 mg PO BID #20 tabs 01/20/25 prednisone 50 mg tablet 50 mg PO QDAY #5 tabs 01/20/25 albuterol sulfate 2.5 mg/3 mL 2.5 mg (3 mL) inhalation QID PRN 07/31/25 (0.083 %) solution for nebulization shortness of breath or wheezing #75 mL albuterol sulfate 90 mcg/actuation 1 inh inhalation QID PRN shortness 07/31/25 aerosol inhaler (Ventolin HFA) of breath or wheezing #8.5 grams Allergies Allergy/AdvReac Type Severity Reaction Status Date / Time No Known Allergies Allergy Verified 07/31/25 15:06 Review of Systems Review of Systems Systems Reviewed: All systems reviewed, normal except as documented Past Medical History Past Medical History CARDIAC: Positive Hypercholesterolemia and Hypertension RESPIRATORY: Positive Asthma Surgical History SURGICAL: Positive Joint Replacement Social History SMOKING STATUS: Never smoker SUBSTANCE USE: does not use ALCOHOL: Never ED Exam Narrative Physical exam: GENERAL APPEARANCE: alert and oriented x 4, well-developed, well-nourished, in respiratory distress VITALS: All vitals were reviewed and the pulse ox is 99% on room air, which is normal according to my interpretation. HEENT: Normocephalic, atraumatic; pupils equal, round, reactive to light; EOMI; mucous membranes pink, moist; oropharynx clear NECK: Supple LUNGS: Decreased breath sounds; wheezing and bronchi throughout HEART: Regular rate, regular rhythm; normal S1, S2; no murmurs ABDOMEN: non distended; normal BS; soft, no tenderness, no guarding, no rebound; no masses, no organomegaly, no hernia BACK: no CVA tenderness EXTREMITIES: atraumatic; no edema NEUROLOGIC: awake; alert and oriented x4; cranial nerves II-XII grossly intact; no focal sensory or motor deficits PSYCHIATRIC: appropriate mood and affect SKIN: warm, dry, normal color; no rashes Course Quality Measures none Orders Category Date Time Status Bedside COVID-19 Antigen Test NOW Care 07/31/25 16:14 Active Bedside Influenza A&B Antigen Test NOW Care 07/31/25 16:14 Completed [employer] NOW Care 07/31/25 16:14 Active EKG (ED ONLY) *Do not use* NOW Care 07/31/25 16:14 Completed EKG (ED Only) Stat Exams 07/31/25 16:14 Draft XR chest 1V portable Stat Exams 07/31/25 16:14 Taken B-Type Natriuretic Peptide Stat Lab 07/31/25 16:45 Completed CBC Stat Lab 07/31/25 16:45 Completed Comprehensive Metabolic Panel Stat Lab 07/31/25 16:45 Completed Lipase Stat Lab 07/31/25 16:45 Completed Magnesium Stat Lab 07/31/25 16:45 Completed Troponin I Stat Lab 07/31/25 16:45 Completed Albuterol/Ipratr Rt Mikala [Duoneb Rt Mikala] Med 07/31/25 16:16 Discontinued 3 ml INH X1 ONE Albuterol/Ipratr Rt Mikala [Duoneb Rt Mikala] Med 07/31/25 16:17 Discontinued 3 ml INH X1 ONE Albuterol/Ipratr Rt Mikala [Duoneb Rt Mikala] Med 07/31/25 17:52 Discontinued 3 ml INH X1 ONE Dexamethasone Inj [Decadron Inj] Med 07/31/25 16:17 Discontinued 4 mg PO X1 ONE Vital Signs Vital signs: Vital Signs Temperature 99.8 F 07/31/25 15:30 Pulse Rate 98 07/31/25 15:30 Respiratory Rate 19 07/31/25 15:30 Blood Pressure 128/86 H 07/31/25 15:30 Pulse Oximetry (%) 98 07/31/25 15:30 Oxygen Delivery Method Room Air 07/31/25 15:30 Upper Respiratory Infection MDM Narrative MDM Narrative:: I, Susu Leandro, am scribing for and in the presence of Dr. Stallings. Patient data External records reviewed:: [facility] previous records Clinical information provided by:: patient Social determinants that could affect healthcare access:: none Patient has the following chronic illnesses:: arthritis and asthma How is presenting disease/condition affected by chronic disease/condition?: exacerbated by Evaluation data The following diagnostics were reviewed and interpreted by me:: lab results, radiology exam(s) and EKG tracing(s) Lab and/or radiology exams considered but not ordered:: none Interpretation Summary: See MDM narrative above. Medications / Prescriptions Medications or Prescriptions considered but not ordered:: none Medication administrations:: Medication Administration History Discontinued Medications Albuterol/Ipratropium (Albuterol/Ipratropium (Duoneb) Rt Mikala 3 Ml Nebu) 3 ml INH X1 ONE Stop: 07/31/25 16:17 Last Admin: 07/31/25 16:47 Dose: 3 ml Documented By: LARAY Albuterol/Ipratropium (Albuterol/Ipratropium (Duoneb) Rt Mikala 3 Ml Nebu) 3 ml INH X1 ONE Stop: 07/31/25 16:18 Last Admin: 07/31/25 16:56 Dose: 3 ml Documented By: LARAY Albuterol/Ipratropium (Albuterol/Ipratropium (Duoneb) Rt Mikala 3 Ml Nebu) 3 ml INH X1 ONE Stop: 07/31/25 17:53 Dexamethasone Sodium Phosphate (Dexamethasone Sod Phos Inj 4 Mg/Ml Vial) 4 mg PO X1 ONE; Protocol Stop: 07/31/25 16:18 Last Admin: 07/31/25 16:38 Dose: 4 mg Documented By: OA see above Consultations Consultation(s) initiated? (list below): No Diagnosis Upper Respiratory Differential Diagnosis: other (Viral upper respiratory infection, asthma exacerbation, and acute bronchitis) Most likely diagnosis given after review of the tests above:: Asthma exacerbation Admission Indicated Admission indicated?: not indicated Admission Request Was there a request for admission?: No Disposition Plan Disposition Plan: Discharge Discharge Attestation Discharge Attestation: The patient and all family members were given an opportunity to ask questions and understood the discharge instructions. Discharge instructions specifically effects, indications for sooner follow up or return to the emergency department, and the expected course of current diagnosis. Patient condition: Stable Discharge Plan Plan Patient Disposition: HOME (Self Care) Prescriptions/Referrals Prescriptions/Med Rec: New albuterol sulfate [Ventolin HFA] 90 mcg/actuation HFA aerosol inhaler 1 inh inhalation QID PRN (Reason: shortness of breath or wheezing) Qty: 8.5 0RF albuterol sulfate 2.5 mg /3 mL (0.083 %) solution for nebulization 2.5 mg inhalation QID PRN (Reason: shortness of breath or wheezing) Qty: 75 0RF No Action furosemide [Lasix] 40 mg Tablet 80 mg PO BID atorvastatin 10 mg Tablet 10 mg PO QDAY Xarelto 20 mg Tablet 20 mg PO QDAY lisinopril 20 mg Tablet 20 mg PO QDAY ondansetron HCl [Zofran] 4 mg tablet 4 mg PO QID PRN (Reason: nausea and vomiting) Qty: 14 0RF meclizine 12.5 mg tablet 12.5 mg PO TID PRN (Reason: vertigo) Qty: 30 0RF hydrocodone-acetaminophen 5-325 mg tablet 1 tab PO Q6H MDD 4 PRN (Reason: pain) Qty: 14 0RF azithromycin [Zithromax Z-Gee] 250 mg tablet See Rx Instructions .ROUTE .COMPLEX Qty: 6 0RF Rx Instructions: For 250 mg dose pack: take 500 mg today (day 1), then 250 mg for 4 days (days 2-5) prednisone 50 mg tablet 50 mg PO QDAY Qty: 5 0RF albuterol sulfate 90 mcg/actuation HFA aerosol inhaler 1 inh inhalation QID PRN (Reason: shortness of breath or wheezing) Qty: 8.5 0RF famotidine [Pepcid] 40 mg tablet 40 mg PO BID Qty: 20 0RF prednisone 50 mg tablet 50 mg PO QDAY Qty: 5 0RF albuterol sulfate 90 mcg/actuation HFA aerosol inhaler 2 inh inhalation QID PRN (Reason: shortness of breath or wheezing) Qty: 8.5 0RF prednisone 50 mg tablet 50 mg PO QDAY Qty: 5 0RF Rx Instructions: Start taking the medication tomorrow albuterol sulfate 2.5 mg /3 mL (0.083 %) solution for nebulization 2.5 mg inhalation Q4H PRN (Reason: shortness of breath or wheezing) Qty: 90 0RF Paxlovid 150-100 mg tablets,dose pack See Rx Instructions .ROUTE .COMPLEX Qty: 20 0RF Rx Instructions: take ONE 150 mg tablet of nirmatrelvir with ONE 100 mg tablet of ritonavir twice daily for 5 days promethazine-DM 6.25-15 mg/5 mL syrup 5 ml PO Q6H Qty: 240 0RF albuterol sulfate [Ventolin HFA] 90 mcg/actuation HFA aerosol inhaler 2 puff inhalation Q6H PRN (Reason: bronchospasm) Qty: 6.7 0RF azithromycin 250 mg tablet See Rx Instructions .ROUTE .COMPLEX Qty: 6 0RF Rx Instructions: For 250 mg dose pack: take 500 mg today (day 1), then 250 mg for 4 days (days 2-5) albuterol sulfate 90 mcg/actuation aerosol powdr breath activated 2 inh inhalation Q4H PRN (Reason: shortness of breath or wheezing) Qty: 1 0RF Problem List Clinical Impression: Asthma exacerbation Patient/Caregiver Discharge Instructions Education Materials: ED Asthma, Acute (Adult), ED Inhaler Use Print Language: Syriac Stand Alone Forms: Dilma Award Info., Patient Portal Info Letter
[2025-07-31] MEDS: DEXAMETHASONE SOD PHOS INJ 4 MG/ML VIAL PO (16:38)
[2025-07-31 16:47] VITALS: PULSE 55; RESP 18; O2SAT 97
[2025-07-31] MEDS: ALBUTEROL/IPRATROPIUM (Duoneb) RT SOL 3 ML NEBU INH ×3 (16:47→18:21)
[2025-07-31 17:10] LABS: Basophils # (Auto) 0.1 Thou/mm3 (0.0-0.2); Basophils % (Auto) 1 % (0-2.5); Eosinophils # (Auto) 0.2 Thou/mm3 (0.0-0.5); Eosinophils % (Auto) 2 % (0-10); Hematocrit 42.2 % (41.0-53.0); Hemoglobin 13.7 g/dL (13.5-16.0); Immature Granulocytes Auto 0.02 Thou/mm3 (0.00-0.00); Lymphocytes # (Auto) 2.6 Thou/mm3 (1.0-4.8); Lymphocytes % (Auto) 37 % (10-50); Mean Corpuscular HGB Conc 32.5 g/dl (31.0-37.0); Mean Corpuscular Hemoglobin 29.7 pg (25.0-35.0); Mean Corpuscular Volume 92 fL (80-100); Monocytes # (Auto) 1.1 Thou/mm3 (0.0-0.8); Monocytes % (Auto) 15 % (0-12); Neutrophils # (Auto) 3.1 Thou/mm3 (1.8-7.7); Neutrophils % (Auto) 45 % (37-80); Nucleated Red Blood Cell # 0.00 Thou/mm3 (0.00-0.00); Nucleated Red Blood Cell % 0 /100 WBC (0); Platelet Count 216 Thou/mm3 (140-440); RDW Standard Deviation 51.9 fL (35.1-43.9); Red Blood Count 4.61 Miln/mm3 (4.50-5.90); White Blood Count 7.0 Thou/mm3 (3.8-10.6)
[2025-07-31 17:29] LABS: B-Type Natriuretic Peptide 535 pg/mL (0-100)
[2025-07-31 17:31] LABS: Alanine Aminotransferase 14 U/L (10-49); Albumin, Serum 4.3 gm/dL (3.4-4.8); Albumin/Globulin Ratio 1.6 (1.2-2.2); Alkaline Phosphatase 86 U/L (46-116); Anion Gap 9 (7-16); Aspartate Amino Transferase 21 U/L (0-34); BUN/Creatinine Ratio 9 Ratio (12-20); Bilirubin,Total 0.9 mg/dL (0.3-1.2); Blood Urea Nitrogen 9 mg/dL (9-23); Calcium 8.9 mg/dL (8.3-10.6); Calcium (Corrected) 8.9 mg/dL (8.5-10.1); Carbon Dioxide 29.1 mMol/L (20.0-31.0); Chloride 105 mMol/L (98-107); Creatinine (Component) 1.0 mg/dL (0.6-1.3); Globulin 2.7 gm/dL (2.3-3.5); Glucose 85 mg/dL (74-106); Lipase 33 U/L (12-53); Magnesium 2.2 mg/dL (1.6-2.6); Osmolality,Calculated 282 (275-295); Potassium 4.2 mMol/L (3.4-5.1); Sodium 143 mMol/L (136-145); Total Protein 7.0 gm/dL (5.7-8.2); Troponin I < 0.020 ng/mL (0.0-0.045); eGFR > 60 See Note
[2025-07-31 17:34] VITALS: BP 133/79; RESP 18; TEMP 36.6; O2SAT 99
[2025-07-31 18:22] VITALS: PULSE 88; RESP 18; O2SAT 98
[2025-07-31 19:06] VITALS: PULSE 77; O2SAT 96
== END 2025-07-31 19:07 | disposition home or self-care (01) ==
LOC: SERX 18:05
PROVIDERS: Emergency Provider Emergency Medicine; PCP Family Medicine
DX: J45.901 Unspecified asthma with (acute) exacerbation (principal); M19.90 Unspecified osteoarthritis, unspecified site; Z79.01 Long term (current) use of anticoagulants
CPT/HCPCS: 36415; 71045; 80053; 83690; 83735; 83880; 84484; 85025; 87400; 87811; 93005; 94640; 99284; A9270; J1100